=== PATIENT | female | born 1975 | race Caucasian/White ===

== ENCOUNTER 2019-01-05 05:53 | Emergency (ER) | payer SELFPAY ==
[~2019-01-05] VITALS: Ht 170.2 cm; Wt 61.2 kg
--- OUTSIDE RECORDS SUMMARY | 2019-01-05 05:55 | XMS REPORT ---
Author Author [facility] Address Unknown Phone Unavailable Care Team Providers Care Log Clerk Name Role Phone Unavailable Unavailable Problems This patient has no known problems. Allergies, Adverse Reactions, Alerts This patient has no known allergies or adverse reactions. Medications This patient has no known medications. Results Test Description Test Time Test Comments Text Results Atomic Results Result Comments CT Abdomen and Pelvis w/ Contrast 2017-10-31 01:33:31 Patient: MAKI ALMAZAN Date/Time10/31/2017 01:15 CDTReason for ExamAbdominal painReportCT Abdomen and Pelvis w/ ContrastLocation:[facility] provided 10/31/2017 1:30 AMIndication: Abdominal painComparison:None availableTechnique: Axial CT images were acquired through the abdomen and pelvis following the bolus administration of intravenous contrast. Sagittal and coronal reformatted images are provided for interpretation. All CT scans at this facility use dose modulation, iterative reconstruction, and/or weight-based dosing when appropriate to reduce radiation dose to as low as reasonably possible. 100 cc of Omnipaque 300.Findings:Lower thorax: Lung bases are clearHepatobiliary: The liver is normal in size and density. No intrahepatic biliary duct dilatation is seen. Status post cholecystectomy.Spleen, pancreas and adrenal glands: NormalUrogenital: The kidneys are normal in size and density with no evidence of stone or hydronep hrosis. The ureters are normal in course and caliber. The urinary bladder appears normal. Postsurgical changes from tubal ligation. 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 Otherwise the bowel is normal in course and caliber. No free air or free fluid is seen. The appendix is normal.Lymph nodes and retroperitoneum: No adenopathy or retroperitoneal mass.Vasculature:No acute abnormality.Bones and soft tissues: Unremarkable.Impression: Postsurgical changes as described in detail above with no evidence of acute abdominal or pelvic abnormality. Final Dictated by: MD Gotti Dennis PDictated DT/TM: 10/31/2017 1:30 amSigned by: MD Gotti Dennis PSigned (Electronic Signature): 10/31/2017 1:33 am XR Chest 1 View Frontal 2017-10-30 14:57:52 Patient: MAKI ALMAZAN Date/Time10/30/2017 14:48 CDTReason for ExamChest painReportCHEST 1 VIEWCLINICAL INFORMATION: Chest painCOMPARISON: None availableFINDINGS:The lungs are well-expanded and clear. No airspace consolidation is seen. No pneumothorax or pleural effusion is present. The cardiac silhouette is normal in size. The bones are grossly intact.IMPRESSION:No acute cardiopulmonary finding.LOCATION: [facility] Final Dictated by: MD Carter Adam FDictated DT/TM: 10/30/2017 2:57 pmSigned by: MD Carter Adam FSigned (Electronic Signature): 10/30/2017 2:57 pm
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
[2019-01-05] MEDS ORDERED: HYDROCODONE/APAP 10MG-325MG TAB PO ONE (06:15)
[2019-01-05] MEDS ORDERED: TETRACAINE HCL 0.5% OPTH SOLN 4 ML BTL OP ONE (06:15)
--- NOTE | 2019-01-05 07:30 | Diagnostic Imaging Report ---
CT BRAIN WO HISTORY: Left ear pain for 3 days COMPARISON: None. TECHNIQUE: Noncontrast axial scans were obtained from skull base to the vertex. Coronal and sagittal reconstructions obtained from the axial data. One or more of the following dose reduction techniques were used: Automated exposure control, adjustment of the mA and/or kV according to patient size, and/or utilization of iterative reconstruction technique. DISCUSSION: Scalp/Skull: Unremarkable. Brain sulci: Appropriate for patient's age. Ventricles: Normal in size and configuration. No hydrocephalus. Extra-axial spaces: No masses or fluid collections. Parenchyma: No abnormal densities. No mass, hemorrhage, or large vascular territory acute infarct. Dural sinuses: No abnormal densities. Sellar/Suprasellar region: Intact. Skull base: Intact. Incidental findings: None. IMPRESSION: No intracranial abnormalities. This preliminary report was issued by Dr. Nehemiah Beavers M.D. neuroradiology fellow at 0730 hours on 01/05/2019. Signed by: Dr. Andrey Neri M.D. on 01/05/2019 1:32 PM
--- NOTE | 2019-01-05 07:43 | Diagnostic Imaging Report ---
CT MAXIO FAC/PARANAS WO HISTORY: 43-year-old female with left ear pain past 3 days and status post fall. COMPARISON: None. TECHNIQUE: Axial CT images through the face were obtained without contrast. Coronal/sagittal reformations were created. One or more of the following dose reduction techniques were used: Automated exposure control, adjustment of the mA and/or kV according to patient size, and/or utilization of iterative reconstruction technique. DISCUSSION: No acute fracture is seen. No destructive osseous lesions are seen. The orbits are intact. Intraorbital contents are grossly unremarkable. Partial mucosal thickening of the bilateral maxillary sinuses. Otherwise the paranasal sinuses are clear. Mild asymmetric soft tissue fullness within the left external auditory canal compared to the right. There is associated opacification of the left hypotympanum. No masses or fluid collections are seen. No soft tissue swelling or fat stranding. The upper aerodigestive tract is unremarkable in appearance. No significant lymphadenopathy. IMPRESSION: 1. No acute osseous abnormality. 2. Nonspecific mild soft tissue fullness within the left external auditory canal could be due to otitis externa. Associated left hypotympanum opacification could be due to middle ear effusion. There is no gross local osseous destruction. Findings can be correlated with physical examination. This preliminary report was issued by Dr. Nehemiah Beavers M.D. neuroradiology fellow at 0742 hours on 01/05/2019. Signed by: Dr. Andrey Neri M.D. on 01/05/2019 1:39 PM
[2019-01-05] MEDS ORDERED: AUGMENTIN 875-1 EACH PO (08:26)
[2019-01-05] MEDS ORDERED: ULTRAM50 MG PO (08:27)
--- NOTE | 2019-01-05 08:47 | NUR ---
DR. MATHEWS AT BEDSIDE UPDATING PATIENT ON HER STATUS. PATIENT WILL NOT ALLOW AN EAR EXAM 2ND TO PAIN
[2019-01-05] MEDS ORDERED: AMOXICILLIN/CLAVULANATE K 875 MG TAB PO NR (09:00)
[2019-01-05] MEDS ORDERED: KETOROLAC TROMETHAMINE 60 MG/2 ML VIAL IM NR (09:00)
[2019-01-05] MEDS ORDERED: KETOROLAC TROMETHAMINE 60 MG/2 ML VIAL ONE (09:01)
== END 2019-01-05 09:44 | disposition home or self-care (01) ==
LOC: ER 05:53
DX: H66.002 Acute suppurative otitis media without spontaneous rupture of ear drum, left ear (principal)
CPT/HCPCS: 70450; 99284; 70486; J1885

== ENCOUNTER 2019-04-10 09:52 | Emergency (ER) | payer BC, OTHER ==
[~2019-04-10] VITALS: Ht 170.2 cm; Wt 61.2 kg
[~2019-04-10 09:52] MED LIST: AUGMENTIN 875-1 EACH PO; ULTRAM50 MG PO
[2019-04-10] MEDS ORDERED: ACETAMINOPHEN 325 MG TAB PO ONE (10:00)
[2019-04-10] MEDS ORDERED: ALBUTEROL/IPRATROPIUM 3 ML NEB NEB ONE (10:00)
[2019-04-10] MEDS ORDERED: PREDNISONE 20 MG TAB PO ONE (10:00)
[2019-04-10] MEDS ORDERED: IBUPROFEN 400 MG TAB PO STA (11:04)
[2019-04-10] MEDS ORDERED: IBUPROFEN 400 MG TAB ONE (11:22)
--- NOTE | 2019-04-10 12:01 | Diagnostic Imaging Report ---
EXAMINATION: CHEST 2 VIEWS INDICATION: Cough COMPARISON: None FINDINGS: LINES/TUBES:None LUNGS:The lungs are well-inflated. No focal consolidation or pulmonary edema. PLEURA:No pleural effusion or pneumothorax. MEDIASTINUM:The cardiomediastinal silhouette appears normal in size and shape. BONES/SOFT TISSUES:No acute osseous injury. ABDOMEN:No free air under the diaphragm. Status post cholecystectomy. IMPRESSION: No focal pneumonia or pulmonary edema. Signed by: Sonia Narayanan MD on 04/10/2019 11:58 AM
[2019-04-10 12:17] VITALS: BP 102/70
== END 2019-04-10 12:22 | disposition home or self-care (01) ==
LOC: ER 09:52
DX: R50.9 Fever, unspecified (principal); J09.X2 Influenza due to identified novel influenza A virus with other respiratory manifestations; M79.10 Myalgia, unspecified site
CPT/HCPCS: 71046; 83518; 87070; 87400; 99283; J7512